=== PATIENT | male | born 1965 | race Caucasian/White ===

== ENCOUNTER 2022-09-15 15:25 | Emergency (ER) | payer OTHER ==
--- NOTE | 2022-09-15 15:34 | ED ---
General Adult HPI - General Stated complaint: [facility] R hand injury Source: RN notes reviewed - History of Present Illness Initial comments: 56-year-old male with no significant past medical history presents to the emergency department with a chief complaint of right hand laceration. Patient reports he was at work when he cut his hand on a piece of metal. Updated on tetanus vaccination. He denies any anticoagulant use. Denies numbness, tingling, weakness in the extremity. He has not taken anything for his symptoms - Related Data Allergies Allergy/AdvReac Type Severity Reaction Status Date / Time tetracycline Allergy Itching Verified 09/15/22 15:47 Review of Systems ROS Statement: Those systems with pertinent positive or pertinent negative responses have been documented in the HPI. ROS Other: All systems not noted in ROS Statement are negative. General Exam - General Exam Comments Initial Comments: Visual Physical Exam Vital signs reviewed General: Well-appearing, nontoxic, no acute distress. Head: Normocephalic, atraumatic Eyes: PERRLA, EOMI ENT: Airway patent Chest: Nonlabored breathing Skin: No visual rash, normal skin tone Neuro: Alert and oriented 3 Musculoskeletal: No gross abnormalities General: Alert, in no acute distress Head: atraumatic normocephalic. Eyes PERRL, EOMI intact, mucous membranes moist Respiratory: Lungs clear to auscultation bilaterally Cardiovascular: Rate regular rate and rhythm Abdominal: Soft without guarding or rebound Extremities: Normal inspection with full range of motion and normal capillary refill, right first digit with 2 cm laceration without active bleeding at PIP joint. No crepitus noted, full range of motion. Radial pulses. Distal NBI remains intact Neuroogic: alert and oriented 3, CN II-XII intact, able to ambulate with steady gait Skin: warm dry and intact with normal color General appearance: alert, in no apparent distress Head exam: Present: atraumatic, normocephalic, normal inspection Eye exam: Present: normal appearance, PERRL, EOMI. Absent: scleral icterus, conjunctival injection, periorbital swelling ENT exam: Present: normal exam, mucous membranes moist Neck exam: Present: normal inspection. Absent: tenderness, meningismus, lymphadenopathy Respiratory exam: Present: normal lung sounds bilaterally. Absent: respiratory distress, wheezes, rales, rhonchi, stridor Cardiovascular Exam: Present: regular rate, normal rhythm, normal heart sounds. Absent: systolic murmur, diastolic murmur, rubs, gallop, clicks GI/Abdominal exam: Present: soft, normal bowel sounds. Absent: distended, tenderness, guarding, rebound, rigid Extremities exam: Present: normal inspection, full ROM, normal capillary refill. Absent: tenderness, pedal edema, joint swelling, calf tenderness Back exam: Present: normal inspection Neurological exam: Present: alert, oriented X3, CN II-XII intact Psychiatric exam: Present: normal affect, normal mood Skin exam: Present: warm, dry, intact, normal color. Absent: rash Course Vital Signs 09/15/22 09/15/22 15:45 17:48 Temperature 98.8 F 97.6 F Pulse Rate 72 66 Respiratory 18 18 Rate Blood Pressure 149/83 159/84 O2 Sat by Pulse 98 96 Oximetry Procedures - Laceration Laceration #1 Indication: laceration Site: other (Right first digit) Description: linear Depth: involves muscle layer Anesthetic Used: lidocaine 1% Anesthesia Technique: local infiltration Pre-repair: wound explored, irrigated extensively Type of Sutures: vicryl Size of Sutures: 5-0 Number of Sutures: 4 Technique: simple, interrupted Complications: pain, bleeding, nerve injury, allergic reaction Patient Tolerated Procedure: well, no complications Additional Comments: Distal and neurovascularly intact status post suture placement Medical Decision Making - Medical Decision Making Was pt. sent in by a medical professional or institution ([facility]ole, [employer], urgent care, hospital, or fdc...) When possible be specific @ -[No] Did you speak to anyone other than the patient for history (EMS, parent, family, police, friend...)? What history was obtained from this source @ -[No] Did you review nursing and triage notes (agree or disagree)? Why? @ -[I reviewed and agree with nursing and triage notes] Were old charts reviewed (outside hosp., previous admission, EMS record, old EKG, old radiological studies, urgent care reports/EKG's, fdc records)? Report findings @ -[No old charts were reviewed] Differential Diagnosis (chest pain, altered mental status, abdominal pain women, abdominal pain men, vaginal bleeding, weakness, fever, dyspnea, syncope, headache, dizziness, GI bleed, back pain, seizure, CVA, palpatations, mental health, musculoskeletal)? @ -[not applicable] EKG interpreted by me (3pts min.). @ -[As above] X-rays interpreted by me (1pt min.). @ -[None done] CT interpreted by me (1pt min.). @ -[None done] U/S interpreted by me (1pt. min.). @ -[None done] What testing was considered but not performed or refused? (CT, X-rays, U/S, labs)? Why? @ -[None] What meds were considered but not given or refused? Why? @ -[None] Did you discuss the management of the patient with other professionals (professionals i.e. DrKevin, PA, [employer], lab, RT, psych nurse, certified social workers in health care, animal groomer, teacher, field health officer, case management director)? Give summary @ -[No] Was smoking cessation discussed for >3mins.? @ -[No] Was critical care preformed (if so, how long)? @ -[No] Were there social determinants of health that impacted care today? How? (Homelessness, low income, unemployed, alcoholism, drug addiction, transportation, low edu. Level, literacy, decrease access to med. care, usp, rehab)? @ -[No] Was there de-escalation of care discussed even if they declined (Discuss DNR or withdrawal of care, Hospice)? DNR status @ -[No] What co-morbidities impacted this encounter? (DM, HTN, Smoking, COPD, CAD, Cancer, CVA, ARF, Chemo, Hep., AIDS, mental health diagnosis, sleep apnea, morbid obesity)? @ -[None] Was patient admitted / discharged? Hospital course, mention meds given and route, prescriptions, significant lab abnormalities, going to OR and other pertinent info. @ -[Discharged. This is a 56-year-old male presents the emergency department with laceration.. Patient had a thorough history and physical exam performed while in the ED. Physical exam is essentially unremarkable. Heart rate regular rate and rhythm, lung sounds clear to auscultation bilaterally abdomen is soft and nontender. Right thumb with 2 cm laceration. Patient had 4 sutures placed while in the ED which she tolerated well. Patient able to ambulate with a steady gait. X-ray negative for evidence of fracture . He shouldn't offered pain medications however he declined. I discussed the results in detail with the patient verbalized understanding. Return precautions were discussed at length. Discharged in stable condition. Case discussed with DOTTY Holman who agrees with plan of care Undiagnosed new problem with uncertain prognosis? @ -[No] Drug Therapy requiring intensive monitoring for toxicity (Heparin, Nitro, Insulin, Cardizem)? @ -[No] Were any procedures done? @ -[No] Diagnosis/symptom? @ -Laceration of right thumb Acute, or Chronic, or Acute on Chronic? @ -acute Uncomplicated (without systemic symptoms) or Complicated (systemic symptoms)? @ uncomplicated Side effects of treatment? @ -[No] Exacerbation, Progression, or Severe Exacerbation? @ -[No] Poses a threat to life or bodily function? How? (Chest pain, [place], [place], pneumonia, PE, COPD, DKA, ARF, appy, cholecystitis, CVA, Diverticulitis, Homicidal, Suicidal, threat to staff... and all critical care pts) @ -low likelihood Disposition Clinical Impression: Laceration Disposition: HOME SELF-CARE Condition: Stable Instructions (If sedation given, give patient instructions): Care For Your Stitches (ED), Laceration (ED) Additional Instructions: Please return to the nearest emergency department symptoms worsen or persist Is patient prescribed a controlled substance at d/c from ED?: No Referrals: Rahul Rader MD [Primary Care Provider] - 1-2 days Becki Rivera DO [Doctor of Osteopathic Medicine] - 1-2 days Time of Disposition: 17:35
[2022-09-15 15:47] VITALS: RESP 18
[2022-09-15] MEDS ORDERED: LIDOCAINE 1% INJ 10MG/ML (30 ML VIAL-PF) SQ ONE (16:02)
[2022-09-15] MEDS ORDERED: DIPH,PERTUS(ACELL)TETVAC-LF 0.5 ML VIAL IM ONE (16:11)
--- NOTE | 2022-09-15 17:17 | XR ---
PROCEDURE: XR hand complete RT - 3V DATE AND TIME: 09/15/2022 4:55 PM CLINICAL INDICATION: [facility]; laceration. TECHNIQUE: Department protocol COMPARISON: None FINDINGS: There is no fracture or malalignment. The soft tissues are negative for acute findings.No radiopaque foreign bodies or soft tissue emphysem a. Scattered degenerative joint changes are noted. IMPRESSION: No acute radiographic process.
[2022-09-15 17:51] VITALS: BP 159/84; PULSE 66; TEMP 97.6
== END 2022-09-15 17:51 | disposition home or self-care (01) ==
LOC: EC 15:25
DX: S61.411A Laceration without foreign body of right hand, initial encounter (principal); Z88.8 Allergy status to other drugs, medicaments and biological substances; X58.XXXA Exposure to other specified factors, initial encounter
CPT/HCPCS: 73130; 12001; 99283; J2001